=== PATIENT | female | born 1970 | race African-American/Black ===

== ENCOUNTER 2021-05-12 15:15 | Emergency (ER) | payer MEDICARE, OTHER ==
[~2021-05-12] VITALS: Ht 180.3 cm; Wt 122.0 kg
[~2021-05-12 15:15] MED LIST: CLIN300C9 PO; HYDR-2761 PO
[2021-05-12] MEDS ORDERED: MORPHINE SULFATE 2 MG/ML INJ. IM ONE (16:45)
[2021-05-12] MEDS ORDERED: MORPHINE SULFATE 2 MG/ML INJ. IVP ONE (17:15)
[2021-05-12 17:53] LABS: BASO % 1 % (0-3); EOS % 0 % (0-3); HEMATOCRIT 38.3 % (36.0-47.0); HEMOGLOBIN 12.8 g/dL (12.0-15.5); LYMPH # 2.6 x10^3/uL (1.0-4.8); LYMPH % 34 % (24-48); MEAN CORPUSCULAR HEMOGLOBIN 30 pg (25-35); MEAN CORPUSCULAR HGB CONC 34 g/dL (31-37); MEAN CORPUSCULAR VOLUME 89 fL (79-100); MONO # 0.7 x10^3/uL (0.0-1.1); MONO % 9 % (0-9); NEUT # 4.3 x10^3/uL (1.8-7.7); NEUT % 57 % (31-73); PLATELET COUNT 274 x10^3/uL (140-400); RED CELL DISTRIBUTION WIDTH 14.8 % (11.5-14.5); WHITE BLOOD COUNT 7.6 x10^3/uL (4.0-11.0)
[2021-05-12 18:04] LABS: CALCIUM 8.6 mg/dL (8.5-10.1); CREATININE 1.2 mg/dL (0.6-1.0); GFR 57.1
[2021-05-12 18:10] LABS: ALBUMIN 3.4 g/dL (3.4-5.0); ALBUMIN/GLOBULIN RATIO 0.9 (1.0-1.7); TOTAL BILIRUBIN 0.3 mg/dL (0.2-1.0); TOTAL PROTEIN 7.4 g/dL (6.4-8.2)
--- NOTE | 2021-05-12 18:32 | RAD ---
XR FOOT_LEFT 3 VIEWS History: Reason: increasing pain in 1st and 2nd toe / Spl. Instructions: / History: Technique: 3 views left foot. Comparison: May 10, 2021 Findings: No dislocation. No acute fracture. Plantar calcaneal spur. No radiographic evidence of osteomyelitis. Impression: 1. No acute osseous abnormality. Electronically signed by: Jaylon Funes DO (05/12/2021 6:30 PM) [facility]
--- NOTE | 2021-05-12 18:43 | PHYS DOC ---
Past Medical History Past Medical History: Diabetes-Type II, High Cholesterol, Hypertension Additional Past Medical Histor: NEUROPATHY (KHURRAM CERDA CNC APPLICATIONS ENGINEER) Past Surgical History: Appendectomy, Cholecystectomy, Hysterectomy Additional Past Surgical Histo: "STOMACH STENT" (KHURRAM CERDA CNC APPLICATIONS ENGINEER) Smoking Status: Current Every Day Smoker Alcohol Use: None Drug Use: Marijuana (KHURRAM CERDA CNC APPLICATIONS ENGINEER) General Adult EDM: Chief Complaint: FOOT INJURY PAIN HPI: HPI: Patient is a 51 year old female who presents with was here on May 10 for same complaint of left second toe redness and 1+ swelling with right great toe slight redness and tenderness. Is been going on for total 4 days. She is placed on clindamycin and given her coat on. She is here today because the pain is not getting better. She states that she also has a healed over blister area on her left dorsal great toe and a healed over blister area on the dorsal ankle anterior on the medial aspect. Patient has a history of diabetes, hypertension, high cholesterol, depression, PTSD, anxiety, psychosis. (KHURRAM CERDA CNC APPLICATIONS ENGINEER) Review of Systems: Review of Systems: Constitutional: Denies fever or chills. [] Eyes: Denies change in visual acuity. [] HENT: Denies nasal congestion or sore throat. [] Respiratory: Denies cough or shortness of breath. [] Cardiovascular: Denies chest pain or + left second toe edema. [] GI: Denies abdominal pain, nausea, vomiting, bloody stools or diarrhea. [] : Denies dysuria. [] Musculoskeletal: Denies back pain or + left foot joint pain. [] Integument: Denies rash. [] Neurologic: Denies headache, focal weakness or sensory changes. [] Endocrine: Denies polyuria or polydipsia. [] Lymphatic: Denies swollen glands. [] Psychiatric: Denies depression or anxiety. [] (KHURRAM CERDA CNC APPLICATIONS ENGINEER) Heart Score: C/O Chest Pain: No Risk Factors: Risk Factors: DM, Current or recent (<one month) smoker, HTN, HLP, family hi story of CAD, obesity. Risk Scores: Score 0 - 3: 2.5% MACE over next 6 weeks - Discharge Home Score 4 - 6: 20.3% MACE over next 6 weeks - Admit for Clinical Observation Score 7 - 10: 72.7% MACE over next 6 weeks - Early Invasive Strategies (KHURRAM CERDA APRN) Current Medications: Current Medications Medications (Trade) Dose Ordered Sig/Michael Start Time Stop Time Status Last Admin Dose Admin Morphine Sulfate (Morphine Sulfate) 2 mg 1X ONCE 05/12/21 17:15 05/12/21 17:16 DC 05/12/21 18:05 2 MG (KHURRAM CERDA CNC APPLICATIONS ENGINEER) Allergies: Allergies: Allergies Coded Allergies Type Severity Reaction Last Updated Verified lisinopril Allergy Unknown 05/10/21 Yes (KHURRAM CERDA APRN) Physical Exam: PE: Constitutional: Well developed, well nourished, no acute distress, non-toxic appearance. [] HENT: Normocephalic, atraumatic, bilateral external ears normal, oropharynx moist, no oral exudates, nose normal. [] Eyes: PERRLA, EOMI, conjunctiva normal, no discharge. [] Neck: Normal range of motion, no tenderness, supple, no stridor. [] Cardiovascular:Heart rate regular rhythm, no murmur [] Lungs & Thorax: Bilateral breath sounds clear to auscultation [] Abdomen: Bowel sounds normal, soft, no tenderness, no masses, no pulsatile mass es. [] Skin: Warm, dry, left second toe erythema, no rash. Left great toe at the DIP healed over blister. Left lateral ankle littler blister type area [] Back: No tenderness, no CVA tenderness. [] Extremities: Medial dorsal left foot and second toe tenderness, no cyanosis, no clubbing, ROM intact, second toe 2+ edema. [] Neurologic: Alert and oriented X 3, normal motor function, normal sensory function, no focal deficits noted. [] Psychologic: Affect normal, judgement normal, mood normal. [] (KHURRAM CERDA APRN) Current Patient Data: Labs: Laboratory Tests Test 05/12/21 17:40 White Blood Count 7.6 x10^3/uL (4.0-11.0) Red Blood Count 4.30 x10^6/uL (3.50-5.40) Hemoglobin 12.8 g/dL (12.0-15.5) Hematocrit 38.3 % (36.0-47.0) Mean Corpuscular Volume 89 fL (79-100) Mean Corpuscular Hemoglobin 30 pg (25-35) Mean Corpuscular Hemoglobin Concent 34 g/dL (31-37) Red Cell Distribution Width 14.8 % (11.5-14.5) H Platelet Count 274 x10^3/uL (140-400) Neutrophils (%) (Auto) 57 % (31-73) Lymphocytes (%) (Auto) 34 % (24-48) Monocytes (%) (Auto) 9 % (0-9) Eosinophils (%) (Auto) 0 % (0-3) Basophils (%) (Auto) 1 % (0-3) Neutrophils # (Auto) 4.3 x10^3/uL (1.8-7.7) Lymphocytes # (Auto) 2.6 x10^3/uL (1.0-4.8) Monocytes # (Auto) 0.7 x10^3/uL (0.0-1.1) Eosinophils # (Auto) 0.0 x10^3/uL (0.0-0.7) Basophils # (Auto) 0.0 x10^3/uL (0.0-0.2) Sodium Level 139 mmol/L (136-145) Potassium Level 4.0 mmol/L (3.5-5.1) Chloride Level 102 mmol/L (98-107) Carbon Dioxide Level 28 mmol/L (21-32) Anion Gap 9 (6-14) Blood Urea Nitrogen 12 mg/dL (7-20) Creatinine 1.2 mg/dL (0.6-1.0) H Estimated GFR (Cockcroft-Gault) 57.1 BUN/Creatinine Ratio 10 (6-20) Glucose Level 265 mg/dL (70-99) H Lactic Acid Level 1.6 mmol/L (0.4-2.0) Calcium Level 8.6 mg/dL (8.5-10.1) Total Bilirubin 0.3 mg/dL (0.2-1.0) Aspartate Amino Transferase (AST) 28 U/L (15-37) Alanine Aminotransferase (ALT) 43 U/L (14-59) Alkaline Phosphatase 121 U/L (46-116) H Total Protein 7.4 g/dL (6.4-8.2) Albumin 3.4 g/dL (3.4-5.0) Albumin/Globulin Ratio 0.9 (1.0-1.7) L Laboratory Tests 05/12/21 17:40 Laboratory Tests 05/12/21 17:40 Vital Signs: Vital Signs Date Time Temp Pulse Resp B/P (MAP) Pulse Ox O2 Delivery O2 Flow Rate FiO2 05/12/21 18:05 Room Air 05/12/21 15:25 98.3 80 18 109/70 (111) 100 98.3 (KHURRAM CERDA APRN) EKG: EKG: [] (KHURRAM CERDA APRN) Radiology/Procedures: Radiology/Procedures: [] Impression: [facility] [id number] [place], [place] [id number] IMAGING REPORT Signed PATIENT: HANG REICHCOUNT: [id number] : 1970 LOCATION: ER AGE: 51 SEX: F EXAM STATUS: REG ER ORD. PHYSICIAN: KHURRAM CERDA APRN REASON: increasing pain in 1st and 2nd toe PROCEDURE: FOOT LEFT 3V XR FOOT_LEFT 3 VIEWS History: Reason: increasing pain in 1st and 2nd toe / Spl. Instructions: / H istory: Technique: 3 views left foot. Comparison: May 10, 2021 Findings: No dislocation. No acute fracture. Plantar calcaneal spur. No radiographic evidence of osteomyelitis. Impression: 1. No acute osseous abnormality. Electronically signed by: Jaylon Funes DO (05/12/2021 6:30 PM) [facility] DICTATED and SIGNED BY: JAYOLN FUNES DO DATE: 05/12/21 [id number] (KHURRAM CERDA APRN) Course & Med Decision Making: Course & Med Decision Making Pertinent Labs and Imaging studies reviewed. (See chart for details) See HPI. Alert and oriented 4. Ambulatory steady gait. Speaks in full clear sentences. Patient is given morphine x2 in the ED. Blood work is unremarkable. X-ray shows no acute findings. Patient does have a UTI with nitrites. I will give her Rocephin in the ED. I will send her home with Keflex on top of her clindamycin that she is already taking. Patient is to follow-up with podiatry or orthopedic. Pedal pulses strong and present. Cap refill less than 2 seconds. Full range of motion of all joints. No joint laxity. Skin pink warm and dry. [] (ZAIDAKHURRAM Lei APRN) Dragon Disclaimer: Dragon Disclaimer: This electronic medical record was generated, in whole or in part, using a voice recognition dictation system. (KHURRAM CERDA APRN) Departure Departure Impression: Primary Impression: Cellulitis Qualified Codes: L03.032 - Cellulitis of left toe Disposition: HOME / SELF CARE / HOMELESS Condition: STABLE Referrals: NO PCP (PCP) YAZMIN LAMAS MD, ZHIPENG DPQuique Patient Instructions: Cellulitis Additional Instructions: I put the name of a ladle liner helper on paperwork. Patient can also follow-up with your primary care physician. Continue taking antibiotics until they are gone. If you begin running a fever or the redness and swelling goes up into your foot you need to return emergency room. Scripts Fluconazole (DIFLUCAN) 150 Mg Tablet 1 TAB PO ONCE, #1 TAB Prov: KHURRAM CERDA APRN 05/12/21 Cephalexin (KEFLEX) 500 Mg Capsule 1 CAP PO TID, #30 CAP Prov: KHURRAM CERDA APRN 05/12/21 Hydrocodone Bit/Acetaminophen (HYDROCODONE-APAP 5-325 ) 1 Tab Tablet 1 TAB PO PRN Q6HRS PRN for PAIN, #5 TAB 0 Refills Prov: KHURRAM CERDA APRN 05/12/21 Attending Signature Attending Signature I have reviewed the PA/[facility] DIRECTOR's note and plan of care. I was available for consultation as needed during the patient's visit in the emergency department. I agree with the clinical impression, plan, and disposition. (MADELINE IYER DO) KHURRAM CERDA APRN May 12, 2021 18:43 MADELINE IYER DO May 13, 2021 04:41
[2021-05-12 19:10] VITALS: BP 156/75
[2021-05-12] MEDS ORDERED: fentaNYL PF VIAL 100 MCG/2 ML VIAL IVP ONE (19:15)
[2021-05-12 19:37] LABS: BILIRUBIN,URINE NEGATIVE (NEG); CLARITY,URINE CLEAR; COLOR,URINE YELLOW; NITRITE,URINE POSITIVE (NEG); PH,URINE 5.5 (<5.0-8.0); PROTEIN,URINE NEGATIVE (NEG-TRACE)
[2021-05-12 19:45] LABS: BACTERIA,URINE MANY /HPF (0-FEW); RBC,URINE 0 /HPF (0-2)
[2021-05-12 19:46] LABS: HYALINE CASTS, URINE OCCASIONAL /HPF
[2021-05-12] MEDS ORDERED: HYDR-2761 PO (20:07)
[2021-05-12] MEDS ORDERED: CEPH500C PO (20:09)
[2021-05-12] MEDS ORDERED: cefTRIAXone IV Push 1 GM VIAL. IVP ONE (20:15)
[2021-05-12] MEDS ORDERED: FLUC150T PO (20:17)
== END 2021-05-12 20:27 | disposition home or self-care (01) ==
LOC: ER 15:15
DX: L03.032 Cellulitis of left toe (principal); E11.40 Type 2 diabetes mellitus with diabetic neuropathy, unspecified; E78.00 Pure hypercholesterolemia, unspecified; I10 Essential (primary) hypertension; F17.200 Nicotine dependence, unspecified, uncomplicated; Z88.6 Allergy status to analgesic agent
CPT/HCPCS: 36415; 73630; 80053; 81001; 83605; 85025; 87040; 87086; 96374; 96375; 99284; J0696; J2270; J3010